=== PATIENT | male | born 1965 | race Caucasian/White ===

== ENCOUNTER 2020-02-19 18:16 | Emergency (ER) | payer OTHER ==
[~2020-02-19] VITALS: Ht 177.8 cm; Wt 86.2 kg
--- NOTE | 2020-02-19 18:31 | NUR ---
BIBSELF C/O RT EYE BLURRED VISION, STARTED LAST NIGHT. PT AAOX4, VSS. SPEAKING IN FULL SENTENCES, NO FACIAL DROOP, NO ARM/LEG DRIFTING OR ANY NEURO DEFICIT. DENIES J[place]SON, DIZZINESS N/V, WEAKNESS @ THIS TIME. DR. MORENO @ BS FOR EVAL. WILL CONT TO MONITOR.
--- NOTE | 2020-02-19 18:47 | NUR ---
PAGED OFFICE OF DR TORRE, LEFT VOICEMAIL
--- NOTE | 2020-02-19 18:51 | NUR ---
Paged Dr. Chirinos; no button broacher physician available
--- NOTE | 2020-02-19 18:51 | NUR ---
[facility]
--- NOTE | 2020-02-19 19:18 | NUR ---
Patient discharged to home in stable condition. Written and verbal after care instructions given. Patient verbalizes understanding of instruction. Pt ambulated with steady gait. VSS.
[2020-02-19 19:19] VITALS: BP 142/82
== END 2020-02-19 19:20 | disposition home or self-care (01) ==
LOC: ER 18:19
DX: H33.21 Serous retinal detachment, right eye (principal); Z98.890 Other specified postprocedural states